=== PATIENT | female | born 1950 | race Caucasian/White ===

== ENCOUNTER → 2024-09-21 | Outpatient (CLI) | payer MEDICARE, SELFPAY ==
[2024-09-21 10:55] LABS: OBS Card Lot # 23001; OBS Performed By LAB; OBS QC OK? Yes
[2024-09-21 18:08] LABS: Occult Blood, Stool Negative (Negative); Occult Blood, Stool #2 Negative (Negative); Occult Blood, Stool #3 Negative (Negative)
[2024-09-21 18:09] LABS: OBS Developer Lot # 23003
== END | disposition home or self-care (01) ==
PROVIDERS: Referring Provider Internal Medicine; Visit Provider Internal Medicine
DX: Z12.11 Encounter for screening for malignant neoplasm of colon (principal)
CPT/HCPCS: 82270

== ENCOUNTER 2024-10-11 14:31 | Outpatient (RCR) | payer MEDICARE, SELFPAY ==
--- NOTE | 2024-10-29 22:58 | CTCFLWUP_ITS ---
Patient: MICHELLE YODER : 1950 Page 4 of 5 FOLLOW UP NOTE DATE OF SERVICE: 10/11/2024 NAME: MICHELLE YODER ACCOUNT: [id number] : 1950 AGE: 74 INTERVAL HISTORY: history of unprovoked pulmonary embolism, 04/28/2023. Patient currently taking Eliquis 5 mg twice a day, patient tolerating well. CT of chest without contrast done due to smoking history, showed new bilateral pulmonary nodules, sug gest 6-month follow-up CT chest without contrast, as detailed below, 03/29/2024. Patient is a former smoker quit about 12 years ago. Patient denies any bruising, denies any bleeding issues, denies nosebleeds, denies nausea vomit abdom inal pain bloody or black stools. Patient denies chest pain shortness of breath or palpitations, weig ht loss. 09/08/2024 CT scan showed no current calcified pulmonary nodules ONCOLOGY HISTORY: DIAGNOSIS: Other pulmonary embolism without acute cor pulmonale [ICD10] I26.99 DATE OF DIAGNOSIS: 04/28/2023 HISTORY OF PRESENT ILLNESS: 74-year-old retired female with past medical history of hypertension, hyperlipidemia, anxiety, depres dorina, memory issues presents to clinic referred by primary care provider Dr. Rider for further work- up and evaluation of unprovoked pulmonary embolism. Patient was admitted to the hospital after experiencing worsening dyspnea on exertion with dry coug h over the course of several weeks with subsequent development of right-sided chest pain which prompt ed her admission to the ER. While there, patient was further evaluated with CTA which showed multipl e small bilateral pulmonary embolisms. Patient denies any recent extended travel, surgical intervent ions, history of malignancy, use of hormone replacement therapy, other medications which have prothro mbotic activity. 04/28/2023: CTA chest with contrast 08/31/2023: Hemoglobin 12.1, hematocrit 38.6, MCV 89, ANC 4.5, platelet count 277,000, WBC 7.0, 11/30/2023: Hemoglobin 13.1, hematocrit 39.8, MCV 89, ANC 5.5, platelet count 256,000, WBC 8.0 02/29/2024: Hemoglobin 13.1, hematocrit 39.5, MCV 91, ANC 6.9, platelet count 281,000, WBC 9.4 03/29/2024: CT chest without contrast OTHER MEDICAL HISTORY/CONDITIONS: HTN,?CHOLESTEROL CSECTION?1985,?URETHROTOMY?1972 FAMILY HISTORY: Mother:?BREAST?CA?40YRS SOCIAL HISTORY: Occupational?History:?retired [employer] employee Education?Level:?Vocational School Graduate Marital?Status:? Tobacco?Pack?per?Day:?0 Tobacco?Use?Years:?20 ETOH?Use:?denies Drug?Note:?denies Social?History?Note:?lives?alone [employer] HISTORY: Menarche?-?Age:?14 Menopause:?age?55 Date?of?last?pap?smear:?unknown Hormone?Use:?denies :?3 Live?Births:?3 Age?1st?:?33 MEDICATIONS: 1. Crestor - 10 mg Daily 2. Cymbalta - 60 mg Daily 3. Eliquis - 5 mg 1 tab Twice a Day 4. MEMANTINE HCL - 10 mg Twice a Day 5. Robaxin - 500 mg As needed 6. trazodone - 100 mg In the evening 7. Xanax - 0.5 mg As needed Medications Last Reconciled by Marylou Romero MA on 10/11/2024 ALLERGIES: IODINE REVIEW OF SYSTEMS: A complete 14-point review of systems was performed and is negative except as noted in interval histo ry. PHYSICAL EXAMINATION: VITAL SIGNS: Temperature?99.6, B/P?146/81, Oxygen?Saturation?96% Weight?104?lbs PAIN: 0 - No pain ECOG Performance Status: 0 - Asymptomatic and fully active GENERAL APPEARANCE: Appears well, in no apparent distress, appropriately interactive. HEENT: Normocephalic, no temporal wasting, normal conjunctiva, no scleral icterus, normal hearing, li ps without lesions, neck normal range of motion. CARDIOVASCULAR: Not assessed. PULMONARY: Normal respiratory effort, no respiratory distress or use of accessory muscles, speaking i n full sentences, no tachypnea. EXTREMITIES: No pedal edema or cyanosis. SKIN: Normal skin appearance. NEUROLOGIC: Alert and oriented x4. PSHYCHIATRIC: Appropriate affect, mood normal, behavior normal, intact thought and speech. LABORATORY DATA: I have personally reviewed and interpreted each of the patient?s relevant lab tests, abnormal finding s are below: Date 08/03/24 ??WHITE?BLOOD?COUNT?(Thou/mm3) 8.3 ??RED?BLOOD?COUNT?(Miln/mm3) 3.95?L ??HEMOGLOBIN?(gm/dl) 12.1 ??HEMATOCRIT?(%) 36.5 ??PLATELET?COUNT?(Thou/mm3) 286 ??NEUTROPHILS?%,?AUTO?(%) 67 ??LYMPH?%,?AUTO?(%) 25 ??NEUTROPHILS,?AUTO?(Thou/mm3) 5.6 ASSESSMENT/PLAN: 1) Unprovoked pulmonary embolism: First episode 04/28/2023. Intermittent palpitations, following up with Dr. Roach, reports cardiac workup has been unremarka ble. No further hypercoagulable workup at this time 2) Former smoker, intermittent dry cough, none recently. Chest CT without contrast showed new bilateral pulmonary nodules in 03/2024 and progressed to 22 mm in 04/2024 3) History of coccidiomycosis - Continue Eliquis 5mg PO BID for now as we don?t know the reason for PE. -CT scan with IV contrast is now negative on 09/08/2024. ORDERS: Get records for Holter monitor and cardiac workup including echo Will get protein C S and factor V Leyden results or order new lab slip Get records for cocci titers which were ordered RETURN TO CLINIC: CBC CMP in 6 months BILLING AND COMPLIANCE: I reviewed external records from providers outside my specialty as summarized above. I spent a total of 50 minutes on this patient?s care on the day of their visit excluding time spent related to any bi lled procedures. This time includes time spent with the patient as well as time spent documenting in the medical record, reviewing patients records and tests, obtaining history, placing orders, communi cating with other healthcare professionals, counseling the patient, family or caregiver, and/or care coordination for the diagnoses above. Electronically Signed by: {Object.Sanct_ID*[email or web address]@M}, {Object.Sanct_ID*[email or web address]@U} D: {Object.Sanct_Date} T: {Object.Sanct_Time} CC: PCP: Hesham Rider Referring: Hesham Rider This document was completed utilizing speech recognition software. Grammatical errors, random word in sertions, pronoun errors, and incomplete sentences are an occasional consequence of this system due t o software limitations, ambient noise, and hardware issues. Any formal questions or concerns about th e content, text or information contained within the body of this dictation should be directly address ed to the provider for clarification.
== END 2024-11-01 23:59 | disposition home or self-care (01) ==
LOC: SCTC 14:31
PROVIDERS: PCP Internal Medicine; Referring Provider Internal Medicine; Visit Provider Internal Medicine Hematology & Oncology
DX: Z09 Encounter for follow-up examination after completed treatment for conditions other than malignant neoplasm (principal); Z86.711 Personal history of pulmonary embolism; Z79.01 Long term (current) use of anticoagulants; Z87.891 Personal history of nicotine dependence; R91.8 Other nonspecific abnormal finding of lung field; Z86.19 Personal history of other infectious and parasitic diseases
CPT/HCPCS: 99212; G0463

== ENCOUNTER → 2024-12-26 | Outpatient (CLI) | payer MEDICARE, SELFPAY ==
[2024-12-26 12:22] LABS: Basophils % (Auto) 0 % (0-2.5); Eosinophils # (Auto) 0.1 Thou/mm3 (0.0-0.5); Eosinophils % (Auto) 1 % (0-10); Hematocrit 37.6 % (36.0-46.0); Hemoglobin 12.2 g/dL (12.0-16.0); Immature Granulocytes % (Auto) 0 % (0-0); Immature Granulocytes Auto 0.02 Thou/mm3 (0.00-0.00); Lymphocytes # (Auto) 1.9 Thou/mm3 (1.0-4.8); Lymphocytes % (Auto) 35 % (10-50); Mean Corpuscular HGB Conc 32.4 g/dl (31.0-37.0); Mean Corpuscular Hemoglobin 30.8 pg (25.0-35.0); Mean Corpuscular Volume 95 fL (80-100); Monocytes # (Auto) 0.4 Thou/mm3 (0.0-0.8); Monocytes % (Auto) 7 % (0-12); Neutrophils % (Auto) 56 % (37-80); Nucleated Red Blood Cell % 0 /100 WBC (0); Platelet Count 220 Thou/mm3 (140-440); RDW Standard Deviation 44.2 fL (36.4-46.3); Red Blood Count 3.96 Miln/mm3 (4.00-5.20); White Blood Count 5.3 Thou/mm3 (3.6-11.0)
[2024-12-26 12:57] LABS: Alanine Aminotransferase 20 U/L (10-49); Albumin, Serum 4.3 gm/dL (3.4-4.8); Alkaline Phosphatase 47 U/L (46-116); Anion Gap 8 (7-16); Aspartate Amino Transferase 23 U/L (0-34); BUN/Creatinine Ratio 15 Ratio (12-20); Bilirubin,Total 0.4 mg/dL (0.3-1.2); Blood Urea Nitrogen 12 mg/dL (9-23); Calcium 9.2 mg/dL (8.3-10.6); Calcium (Corrected) 9.2 mg/dL (8.5-10.1); Carbon Dioxide 29.6 mMol/L (20.0-31.0); Chloride 104 mMol/L (98-107); Cholesterol 167 mg/dL (132-200); Creatinine (Component) 0.8 mg/dL (0.6-1.3); Globulin 2.2 gm/dL (2.3-3.5); Glucose 75 mg/dL (74-106); HDL Cholesterol 82 mg/dL (40-60); LDL Cholesterol,Calculated 58 mg/dL (0-130); Osmolality,Calculated 281 (275-295); Potassium 4.4 mMol/L (3.4-5.1); Sodium 142 mMol/L (136-145); Thyroid Stimulating Hormone 1.41 uIU/mL (0.55-4.78); Total Protein 6.5 gm/dL (5.7-8.2); Triglycerides 133 mg/dL (30-150); eGFR > 60 See Note
[2024-12-26 13:50] LABS: Vitamin B12 505 pg/mL (211-911); Vitamin D 25 Hydroxy Total 59.3 ng/mL (7.3-40.2)
[2024-12-26 13:51] LABS: Collection Type, Urine Clean Catch; Squamous Epithelial Cell,Urine 0 /hpf (0-5)
[2024-12-26 14:34] LABS: Bilirubin,Urine Negative (Negative); Blood,Urine Trace (Negative); Clarity,Urine Clear (Clear/Hazy); Color,Urine Lt-Yellow (Lt Yel-Yel); Glucose, Urine Negative (Negative); Ketones,Urine Negative (Negative); Leukocyte Esterase,Urine Negative (Negative); Nitrite,Urine Negative (Negative); PH,Urine 5.5 (5.0-7.0); Protein,Urine Negative (Neg - Trace); RBC,Urine 3 /hpf (0-3); Specific Gravity,Urine 1.022 (1.001-1.035); Urobilinogen,Urine Negative mg/dL (0.0-1.0); WBC,Urine < 1 /hpf (0-5)
== END | disposition home or self-care (01) ==
LOC: COPL 11:42
PROVIDERS: PCP Internal Medicine; Referring Provider Internal Medicine; Visit Provider Internal Medicine
DX: Z00.00 Encounter for general adult medical examination without abnormal findings (principal); I10 Essential (primary) hypertension; E78.5 Hyperlipidemia, unspecified; D51.9 Vitamin B12 deficiency anemia, unspecified; E55.9 Vitamin D deficiency, unspecified
CPT/HCPCS: 36415; 80053; 80061; 81001; 82306; 82607; 84443; 85025

== ENCOUNTER → 2025-04-10 | Outpatient (CLI) | payer MEDICARE, SELFPAY ==
[2025-04-10 16:27] LABS: Basophils # (Auto) 0.1 Thou/mm3 (0.0-0.2); Basophils % (Auto) 1 % (0-2.5); Eosinophils # (Auto) 0.1 Thou/mm3 (0.0-0.5); Eosinophils % (Auto) 1 % (0-10); Hematocrit 37.6 % (36.0-46.0); Hemoglobin 12.2 g/dL (12.0-16.0); Immature Granulocytes % (Auto) 0 % (0-0); Immature Granulocytes Auto 0.03 Thou/mm3 (0.00-0.00); Lymphocytes # (Auto) 1.8 Thou/mm3 (1.0-4.8); Lymphocytes % (Auto) 22 % (10-50); Mean Corpuscular HGB Conc 32.4 g/dl (31.0-37.0); Mean Corpuscular Hemoglobin 30.3 pg (25.0-35.0); Mean Corpuscular Volume 94 fL (80-100); Monocytes # (Auto) 0.5 Thou/mm3 (0.0-0.8); Monocytes % (Auto) 6 % (0-12); Neutrophils # (Auto) 5.6 Thou/mm3 (1.8-7.7); Neutrophils % (Auto) 70 % (37-80); Nucleated Red Blood Cell % 0 /100 WBC (0); Platelet Count 259 Thou/mm3 (140-440); RDW Standard Deviation 43.6 fL (36.4-46.3); Red Blood Count 4.02 Miln/mm3 (4.00-5.20)
[2025-04-10 16:40] LABS: Alanine Aminotransferase 18 U/L (10-49); Albumin, Serum 4.5 gm/dL (3.4-4.8); Albumin/Globulin Ratio 1.9 (1.2-2.2); Alkaline Phosphatase 66 U/L (46-116); Anion Gap 11 (7-16); BUN/Creatinine Ratio 16 Ratio (12-20); Bilirubin,Total 0.4 mg/dL (0.3-1.2); Blood Urea Nitrogen 16 mg/dL (9-23); Calcium 9.1 mg/dL (8.3-10.6); Calcium (Corrected) 9.1 mg/dL (8.5-10.1); Carbon Dioxide 26.6 mMol/L (20.0-31.0); Chloride 105 mMol/L (98-107); Globulin 2.4 gm/dL (2.3-3.5); Glucose 118 mg/dL (74-106); Osmolality,Calculated 287 (275-295); Sodium 143 mMol/L (136-145); Total Protein 6.9 gm/dL (5.7-8.2); eGFR 59 See Note
== END | disposition home or self-care (01) ==
LOC: SCTO 15:39
PROVIDERS: PCP Internal Medicine; Referring Provider Internal Medicine Hematology & Oncology; Visit Provider Internal Medicine Hematology & Oncology
DX: I26.99 Other pulmonary embolism without acute cor pulmonale (principal)
CPT/HCPCS: 36415; 80053; 85025

== ENCOUNTER 2025-04-11 14:29 | Outpatient (RCR) | payer MEDICARE, SELFPAY ==
--- NOTE | 2025-04-17 00:33 | CTCFLWUP_ITS ---
Patient: MICHELLE YODER : 1950 Page 4 of 6 FOLLOW UP NOTE DATE OF SERVICE: 04/11/2025 NAME: MICHELLE YODER ACCOUNT: [id number] : 1950 AGE: 74 INTERVAL HISTORY: Subjective: Chief Complaint Follow-up for pulmonary embolism, chest pain one month ago History of Present Illness Rohini is a patient with a history of unprovoked pulmonary embolism (PE) on April 24, currently on anticoagulation therapy. She presents for follow-up and reports resolution of recent chest pains. The patient experienced chest pains about a month ago, which have since resolved. She plans to visit her quality assurance qa lab analyst for further evaluation. Rohini reports feeling safe on her current anticoagulation medication, Eliquis. She mentions having completed blood work yesterday. Regarding her medical history, Rohini notes that she quit smoking and drinking 13 years ago. She also reports that her CT scan in September was clear, with no nodules present. Medications and Supplements - Eliquis 5 mg twice daily - Prevents stroke and other issues - Patient feels safe on this medication Review of Systems Cardiovascular: Positive for chest pains one month ago, now resolved. Objective: Laboratory, Imaging, and Diagnostic Test Results - CT scan (September 2024): Clear, no nodules - Coxie titers: Negative - D-Dimer: Pending ONCOLOGY HISTORY:?[facility] Oncology Hx? DIAGNOSIS: Other pulmonary embolism without acute cor pulmonale [ICD10] I26.99 history of unprovoked pulmonary embolism, 04/28/2023. Patient currently taking Eliquis 5 mg twice a day, patient tolerating well. CT of chest without contrast done due to smoking history, showed new bilateral pulmonary nodules, suggest 6-month follow-up CT chest without contrast, as detailed below, 03/29/2024. Patient is a former smoker quit about 12 years ago. Patient denies any bruising, denies any bleeding issues, denies nosebleeds, denies nausea vomit abdominal pain bloody or black stools. Patient denies chest pain shortness of breath or palpitations, weight loss. 09/08/2024 CT scan showed no current calcified pulmonary nodules DATE OF DIAGNOSIS: 04/28/2023 TREATMENT HISTORY: Care?Plan Start?Date Cycle Day Intent HISTORY OF PRESENT ILLNESS: 74-year-old retired female with past medical history of hypertension, hyperlipidemia, anxiety, depression, memory issues presents to clinic referred by primary care provider Dr. Rider for further work-up and evaluation of unprovoked pulmonary embolism. Patient was admitted to the hospital after experiencing worsening dyspnea on exertion with dry cough over the course of several weeks with subsequent development of right-sided chest pain which prompted her admission to the ER. While there, patient was further evaluated with CTA which showed multiple small bilateral pulmonary embolisms. Patient denies any recent extended travel, surgical interventions, history of malignancy, use of hormone replacement therapy, other medications which have prothrombotic activity. 04/28/2023: CTA chest with contrast 08/31/2023: Hemoglobin 12.1, hematocrit 38.6, MCV 89, ANC 4.5, platelet count 277,000, WBC 7.0, 11/30/2023: Hemoglobin 13.1, hematocrit 39.8, MCV 89, ANC 5.5, platelet count 256,000, WBC 8.0 02/29/2024: Hemoglobin 13.1, hematocrit 39.5, MCV 91, ANC 6.9, platelet count 281,000, WBC 9.4 03/29/2024: CT chest without contrast OTHER MEDICAL HISTORY/CONDITIONS: HTN,?CHOLESTEROL CSECTION?1985,?URETHROTOMY?1973 FAMILY HISTORY: Mother:?BREAST?CA?40YRS SOCIAL HISTORY: Occupational?History:?retired [employer] employee Education?Level:?Vocational School Graduate Marital?Status:? 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 Crestor - 10 mg Daily 2. Cymbalta - 60 mg Daily 3. Eliquis - 5 mg 1 tab Twice a Day 4. MEMANTINE HCL - 10 mg Twice a Day 5. Robaxin - 500 mg As needed 6. trazodone - 100 mg In the evening 7. Xanax - 0.5 mg As needed?[place] Meds? Medications Last Reconciled by Marylou Romero MA on 04/11/2025 ALLERGIES: IODINE REVIEW OF SYSTEMS: A complete 14-point review of systems was performed and is negative except as noted in interval history. PHYSICAL EXAMINATION:?CloneBlock PE? VITAL SIGNS: Temperature?99.9, B/P?107/77, Oxygen?Saturation?98% PAIN: 0 - No pain ECOG Performance Status: 0 - Asymptomatic and fully active GENERAL APPEARANCE: Appears well, in no apparent distress, appropriately interactive. HEENT: Normocephalic, no temporal wasting, normal conjunctiva, no scleral icterus, normal hearing, lips without lesions, neck normal range of motion. CARDIOVASCULAR: Not assessed. PULMONARY: Normal respiratory effort, no respiratory distress or use of accessory muscles, speaking in full sentences, no tachypnea. EXTREMITIES: No pedal edema or cyanosis. SKIN: Normal skin appearance. NEUROLOGIC: Alert and oriented x4. PSHYCHIATRIC: Appropriate affect, mood normal, behavior normal, intact thought and speech. LABORATORY DATA: I have personally reviewed and interpreted each of the patient?s relevant lab tests, abnormal findings are below: Date 12/26/24 04/10/25 ??WHITE?BLOOD?COUNT?(Thou/mm3) 5.3 8.0 ??RED?BLOOD?COUNT?(Miln/mm3) 3.96?L 4.02 ??HEMOGLOBIN?(gm/dl) 12.2 12.2 ??HEMATOCRIT?(%) 37.6 37.6 ??PLATELET?COUNT?(Thou/mm3) 220 259 ??NEUTROPHILS?%,?AUTO?(%) 56 70 ??LYMPH?%,?AUTO?(%) 35 22 ??NEUTROPHILS,?AUTO?(Thou/mm3) 3.0 5.6 ??GLUCOSE,RANDOM?(mg/dL) 75 118?H ??BLOOD?UREA?NITROGEN?(mg/dL) 12 16 ??CREATININE?(mg/dL) 0.80 1.00 ??SODIUM?(mmol/L) 142 143 ??POTASSIUM?(mmol/L) 4.4 4.0 ??CHLORIDE?(mmol/L) 104 105 ??CrCl?(CandG)?(ml/min) 45.95 36.76 ??AST/SGOT?(Unit/L) 23 ? ??ALT/SGPT?(Unit/L) 20 18 ??ALKALINE?PHOSPHATASE?(Unit/L) 47 66 ??BILIRUBIN,?TOTAL?(mg/dL) 0.4 0.4 ??PROTEIN?TOTAL?(gm/dl) 6.5 6.9 ??ALBUMIN,?SERUM?(gm/dl) 4.3 4.5 ??GLOBULIN?(gm/dl) 2.2?L 2.4 ??ALBUMIN/GLOBULIN?RATIO 2.0 1.9 ??CALCIUM,?SERUM?(mg/dL) 9.2 9.1 ??CALCIUM?SERUM?(CORRECTED)?(mg/dL) 9.2 9.1 ASSESSMENT/PLAN: Assessment and Plan: Rohini, a former smoker and drinker, presents for follow-up of an unprovoked pulmonary embolism (PE) diagnosed on April 24, with recent chest pain that has resolved. Pulmonary Embolism Assessment: Patient had an unprovoked PE diagnosed on April 24. CT scan in September was clear with no nodules. Coccidioidomycosis titers were negative, ruling out Valley Fever. Patient experienced chest pain about a month ago, which has since resolved. Currently on anticoagulation therapy with Eliquis. Plan to perform D-Dimer test to guide anticoagulation management. Plan: - Continue Eliquis at current dose until further evaluation - Perform D-Dimer test - If negative, decrease Eliquis to 2.5 mg twice daily - Advise patient to avoid contact sports and exercise caution at home - Follow up in 3 months Chest Pain Assessment: Patient reports experiencing chest pain about a month ago, which has since resolved. Given the history of PE, further cardiac evaluation is warranted. Plan: - Refer to quality assurance qa lab analyst for cardiac workup - Maintain current anticoagulation therapy until cardiac evaluation is complete ?Alejandro Mora Assessment/Plan? 1) Unprovoked pulmonary embolism: First episode 04/28/2023. Intermittent palpitations, following up with Dr. Roach, reports cardiac workup has been unremarkable. No further hypercoagulable workup at this time 2) Former smoker, intermittent dry cough, none recently. Chest CT without contrast showed new bilateral pulmonary nodules in 03/2024 and progressed to 22 mm in 04/2024. CT scan in September was clear with no nodules. 3) History of coccidiomycosis - Continue Eliquis 5mg PO BID for now as we don?t know the reason for PE. -CT scan with IV contrast is now negative on 09/08/2024. RETURN TO CLINIC: BILLING AND COMPLIANCE: I reviewed external records from providers outside my specialty as summarized above. I spent a total of 50 minutes on this patient?s care on the day of their visit excluding time spent related to any billed procedures. This time includes time spent with the patient as well as time spent documenting in the medical record, reviewing patients records and tests, obtaining history, placing orders, communicating with other healthcare professionals, counseling the patient, family or caregiver, and/or care coordination for the diagnoses above. Electronically Signed by: Alexandru Mora MD T: 12:30 AM CC: PCP: Hesham Rider Referring: Hesham Rider This document was completed utilizing speech recognition software. Grammatical errors, random word insertions, pronoun errors, and incomplete sentences are an occasional consequence of this system due to software limitations, ambient noise, and hardware issues. Any formal questions or concerns about the content, text or information contained within the body of this dictation should be directly addressed to the provider for clarification.
== END 2025-05-01 23:59 | disposition home or self-care (01) ==
LOC: SCTC 14:29
PROVIDERS: PCP Internal Medicine; Referring Provider Internal Medicine; Visit Provider Internal Medicine Hematology & Oncology
DX: I26.99 Other pulmonary embolism without acute cor pulmonale (principal); Z79.01 Long term (current) use of anticoagulants; Z87.891 Personal history of nicotine dependence
CPT/HCPCS: 99212; G0463

== ENCOUNTER → 2025-08-25 | Outpatient (CLI) | payer MEDICARE, SELFPAY ==
[2025-08-25 15:33] LABS: Basophils # (Auto) 0.0 Thou/mm3 (0.0-0.2); Basophils % (Auto) 1 % (0-2.5); Eosinophils # (Auto) 0.2 Thou/mm3 (0.0-0.5); Eosinophils % (Auto) 3 % (0-10); Hematocrit 36.9 % (36.0-46.0); Hemoglobin 11.9 g/dL (12.0-16.0); Immature Granulocytes Auto 0.02 Thou/mm3 (0.00-0.00); Lymphocytes # (Auto) 1.7 Thou/mm3 (1.0-4.8); Lymphocytes % (Auto) 26 % (10-50); Mean Corpuscular HGB Conc 32.2 g/dl (31.0-37.0); Mean Corpuscular Hemoglobin 31.2 pg (25.0-35.0); Mean Corpuscular Volume 97 fL (80-100); Monocytes # (Auto) 0.4 Thou/mm3 (0.0-0.8); Monocytes % (Auto) 7 % (0-12); Neutrophils # (Auto) 4.0 Thou/mm3 (1.8-7.7); Neutrophils % (Auto) 63 % (37-80); Nucleated Red Blood Cell # 0.00 Thou/mm3 (0.00-0.00); Nucleated Red Blood Cell % 0 /100 WBC (0); Platelet Count 365 Thou/mm3 (140-440); RDW Standard Deviation 47.1 fL (36.4-46.3); Red Blood Count 3.82 Miln/mm3 (4.00-5.20); White Blood Count 6.3 Thou/mm3 (3.6-11.0)
[2025-08-25 15:48] LABS: Alanine Aminotransferase 11 U/L (10-49); Albumin, Serum 4.9 gm/dL (3.4-4.8); Albumin/Globulin Ratio 2.2 (1.2-2.2); Alkaline Phosphatase 60 U/L (46-116); Anion Gap 10 (7-16); Aspartate Amino Transferase 23 U/L (0-34); BUN/Creatinine Ratio 11 Ratio (12-20); Bilirubin,Total 0.3 mg/dL (0.3-1.2); Blood Urea Nitrogen 11 mg/dL (9-23); Calcium 9.4 mg/dL (8.3-10.6); Calcium (Corrected) 9.4 mg/dL (8.5-10.1); Carbon Dioxide 29.9 mMol/L (20.0-31.0); Chloride 102 mMol/L (98-107); Creatinine (Component) 1.0 mg/dL (0.6-1.3); D-Dimer 652 ng/mL (<600); Globulin 2.2 gm/dL (2.3-3.5); Glucose 106 mg/dL (74-106); Osmolality,Calculated 282 (275-295); Potassium 4.2 mMol/L (3.4-5.1); Sodium 142 mMol/L (136-145); Total Protein 7.1 gm/dL (5.7-8.2); eGFR 59 See Note
== END | disposition home or self-care (01) ==
LOC: SCTO 14:43
PROVIDERS: PCP Internal Medicine; Referring Provider Internal Medicine Hematology & Oncology; Visit Provider Internal Medicine Hematology & Oncology
DX: I26.99 Other pulmonary embolism without acute cor pulmonale (principal)
CPT/HCPCS: 36415; 80053; 85025; 85379

== ENCOUNTER 2025-09-14 11:31 | Outpatient (RCR) | payer MEDICARE, SELFPAY ==
--- NOTE | 2025-09-14 12:09 | CTCFLWUP_ITS ---
Patient: MICHELLE YODER : 1950 Page 2 of 2 FOLLOW UP NOTE DATE OF SERVICE: 09/14/2025 NAME: MICHELLE YODER ACCOUNT: [id number] : 1950 AGE: 75 INTERVAL HISTORY: Subjective: Patient is doing well. No bruising . taking eliquis. No blood in stools or urine. Patient is on oral iron . patient started drinking alcohol and went to detox place and no drinks for 2 months .patient have chest discomfort now and then ,, mostly with exertion. Have constipation and black stools with oral iron and retching Medications and Supplements - Eliquis 5 mg twice daily - Prevents stroke and other issues - Patient feels safe on this medication Review of Systems Cardiovascular: Positive for chest pains one month ago, now resolved. Objective: Laboratory, Imaging, and Diagnostic Test Results - CT scan (September 2024): Clear, no nodules - Coxie titers: Negative - D-Dimer: Pending ONCOLOGY HISTORY: DIAGNOSIS: Other pulmonary embolism without acute cor pulmonale [ICD10] I26.99 history of unprovoked pulmonary embolism, 04/28/2023. Patient currently taking Eliquis 5 mg twice a day, patient tolerating well. CT of chest without contrast done due to smoking history, showed new bilateral pulmonary nodules, suggest 6-month follow-up CT chest without contrast, as detailed below, 03/29/2024. Patient is a former smoker quit about 12 years ago. Patient denies any bruising, denies any bleeding issues, denies nosebleeds, denies nausea vomit abdominal pain bloody or black stools. Patient denies chest pain shortness of breath or palpitations, weight loss. 09/08/2024 CT scan showed no current calcified pulmonary nodules DATE OF DIAGNOSIS: 04/28/2023 TREATMENT HISTORY: Care?Plan Start?Date Cycle Day Intent HISTORY OF PRESENT ILLNESS: 75-year-old retired female with past medical history of hypertension, hyperlipidemia, anxiety, depression, memory issues presents to clinic referred by primary care provider Dr. Rider for further work-up and evaluation of unprovoked pulmonary embolism. Patient was admitted to the hospital after experiencing worsening dyspnea on exertion with dry cough over the course of several weeks with subsequent development of right-sided chest pain which prompted her admission to the ER. While there, patient was further evaluated with CTA which showed multiple small bilateral pulmonary embolisms. Patient denies any recent extended travel, surgical interventions, history of malignancy, use of hormone replacement therapy, other medications which have prothrombotic activity. 04/28/2023: CTA chest with contrast 08/31/2023: Hemoglobin 12.1, hematocrit 38.6, MCV 89, ANC 4.5, platelet count 277,000, WBC 7.0, 11/30/2023: Hemoglobin 13.1, hematocrit 39.8, MCV 89, ANC 5.5, platelet count 256,000, WBC 8.0 02/29/2024: Hemoglobin 13.1, hematocrit 39.5, MCV 91, ANC 6.9, platelet count 281,000, WBC 9.4 03/29/2024: CT chest without contrast OTHER MEDICAL HISTORY/CONDITIONS: HTN,?CHOLESTEROL CSECTION?1985,?URETHROTOMY?1973 FAMILY HISTORY: Mother:?BREAST?CA?40YRS SOCIAL HISTORY: Occupational?History:?retired [employer] employee Education?Level:?Vocational School Graduate Marital?Status:? 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 Crestor - 10 mg Daily 2. Cymbalta - 60 mg Daily 3. Eliquis - 5 mg 1 tab twice a day 4. MEMANTINE HCL - 10 mg Twice a Day 5. Robaxin - 500 mg As needed 6. trazodone - 100 mg In the evening 7. Xanax - 0.5 mg As needed Medications Last Reconciled by Liliana Moreno RN on 09/14/2025 ALLERGIES: IODINE REVIEW OF SYSTEMS: A complete 14-point review of systems was performed and is negative except as noted in interval history. PHYSICAL EXAMINATION: VITAL SIGNS: PAIN: 0 - No pain ECOG Performance Status: 0 - Asymptomatic and fully active GENERAL APPEARANCE: Appears well, in no apparent distress, appropriately interactive. HEENT: Normocephalic, no temporal wasting, normal conjunctiva, no scleral icterus, normal hearing, lips without lesions, neck normal range of motion. CARDIOVASCULAR: Not assessed. PULMONARY: Normal respiratory effort, no respiratory distress or use of accessory muscles, speaking in full sentences, no tachypnea. EXTREMITIES: No pedal edema or cyanosis. SKIN: Normal skin appearance. NEUROLOGIC: Alert and oriented x4. PSHYCHIATRIC: Appropriate affect, mood normal, behavior normal, intact thought and speech. LABORATORY DATA: I have personally reviewed and interpreted each of the patient?s relevant lab tests, abnormal findings are below: Date 04/10/25 08/25/25 ??WHITE?BLOOD?COUNT?(Thou/mm3) 8.0 6.3 ??RED?BLOOD?COUNT?(Miln/mm3) 4.02 3.82?L ??HEMOGLOBIN?(gm/dl) 12.2 11.9?L ??HEMATOCRIT?(%) 37.6 36.9 ??PLATELET?COUNT?(Thou/mm3) 259 365 ??NEUTROPHILS?%,?AUTO?(%) 70 63 ??LYMPH?%,?AUTO?(%) 22 26 ??NEUTROPHILS,?AUTO?(Thou/mm3) 5.6 4.0 ??GLUCOSE,RANDOM?(mg/dL) 118?H 106 ??BLOOD?UREA?NITROGEN?(mg/dL) 16 11 ??CREATININE?(mg/dL) 1.00 1.00 ??SODIUM?(mmol/L) 143 142 ??POTASSIUM?(mmol/L) 4.0 4.2 ??CHLORIDE?(mmol/L) 105 102 ??CrCl?(CandG)?(ml/min) 36.76 36.20 ??AST/SGOT?(Unit/L) ? 23 ??ALT/SGPT?(Unit/L) 18 11 ??ALKALINE?PHOSPHATASE?(Unit/L) 66 60 ??BILIRUBIN,?TOTAL?(mg/dL) 0.4 0.3 ??PROTEIN?TOTAL?(gm/dl) 6.9 7.1 ??ALBUMIN,?SERUM?(gm/dl) 4.5 4.9?H ??GLOBULIN?(gm/dl) 2.4 2.2?L ??ALBUMIN/GLOBULIN?RATIO 1.9 2.2 ??CALCIUM,?SERUM?(mg/dL) 9.1 9.4 ??CALCIUM?SERUM?(CORRECTED)?(mg/dL) 9.1 9.4 ASSESSMENT/PLAN: Assessment and Plan: Rohini, a former smoker and drinker, presents for follow-up of an unprovoked pulmonary embolism (PE) diagnosed on April 24, with recent chest pain that has resolved. Pulmonary Embolism Assessment: Patient had an unprovoked PE diagnosed on April 24. CT scan in September was clear with no nodules. Coccidioidomycosis titers were negative, ruling out Valley Fever. Patient experienced chest pain about a month ago, which has since resolved. Currently on anticoagulation therapy with Eliquis. Plan to perform D-Dimer test to guide anticoagulation management. D dimer was above 600 mildly elvated Eliquis 5 mg bid - Advise patient to avoid contact sports and exercise caution at home - Follow up in 3 months Chest Pain On and off ECHO to evaluate EF Follow with cardiology 1) Unprovoked pulmonary embolism: First episode 04/28/2023. Intermittent palpitations, following up with Dr. Roach, reports cardiac workup has been unremarkable. No further hypercoagulable workup at this time 2) Former smoker, intermittent dry cough, none recently. Chest CT without contrast showed new bilateral pulmonary nodules in 03/2024 and progressed to 22 mm in 04/2024. CT scan in September was clear with no nodules. 3) History of coccidiomycosis - Continue Eliquis 5mg PO BID for now as we don?t know the reason for PE. -CT scan with IV contrast is now negative on 09/08/2024. Anemia - Mild anemi - Had black stools - Iron studies. ORDERS: Order # Description [id number] Iron Panel + Ferritin RETURN TO CLINIC: I reviewed the diagnosis, prognosis, and recommended treatment/procedure options with the patient (and/or their legal cash applications representative), including the potential benefits, risks, side effects and alternative therapies. We also discussed the option of no treatment and the possibility of clinical trial participation, if applicable. All questions were addressed, and they demonstrated understanding. They provided informed consent to proceed with the proposed plan of care. BILLING AND COMPLIANCE: I reviewed external records from providers outside my specialty as summarized above. I spent a total of 50 minutes on this patient?s care on the day of their visit excluding time spent related to any billed procedures. This time includes time spent with the patient as well as time spent documenting in the medical record, reviewing patients records and tests, obtaining history, placing orders, communicating with other healthcare professionals, counseling the patient, family or caregiver, and/or care coordination for the diagnoses above. Electronically Signed by: Alexandru Mora MD T: 12:07 PM CC: PCP: Hesham Rider Referring: Hesham Rider This document was completed utilizing speech recognition software. Grammatical errors, random word insertions, pronoun errors, and incomplete sentences are an occasional consequence of this system due to software limitations, ambient noise, and hardware issues. Any formal questions or concerns about the content, text or information contained within the body of this dictation should be directly addressed to the provider for clarification.
== END 2025-10-01 23:59 | disposition home or self-care (01) ==
LOC: SCTC 11:31
PROVIDERS: PCP Internal Medicine; Referring Provider Internal Medicine; Visit Provider Internal Medicine Hematology & Oncology
DX: I26.99 Other pulmonary embolism without acute cor pulmonale (principal); Z87.891 Personal history of nicotine dependence; Z86.19 Personal history of other infectious and parasitic diseases; Z79.01 Long term (current) use of anticoagulants; D64.9 Anemia, unspecified
CPT/HCPCS: 99212; G0463

== ENCOUNTER 2025-09-28 11:33 | Emergency (ER) | payer MEDICARE, SELFPAY ==
[2025-09-28 11:51] VITALS: BP 128/84; PULSE 83; RESP 18; TEMP 36.8; O2SAT 97; BMI 18.3
--- NOTE | 2025-09-28 11:55 | XR_ITS ---
Examination: CT lumbar spine, without contrast. 2-D sagittal reconstructions. 2-D coronal reconstructions. 3-D reconstructions. Date and time of exam: September 28, 2025, 1252 hours INDICATIONS: Patient fell yesterday with injury to the lower back, lower back pain CTDI: vol (mGy): 12.4 DLP: (mGycm): 339 Technique: Multiple 1.25 mm axial sections of the lumbar spine without intravenous contrast have been obtained. 2-D sagittal and coronal reconstructions have been obtained. 3-D reconstructions have been obtained. Low dose protocols were performed. One or more of the following dose reduction techniques were used; automated exposure control, adjustment of the mA and/or KV according to patient size, use of iterative reconstruction technique. Findings: Severe osteopenia No acute thoracic vertebral body compression fracture Thoracic pedicles, laminae, transverse and posterior spinous processes are intact Nondisplaced fractures anterior right first sacral wing image 146 L4-L5 3 mm central lumbar disc bulge IMPRESSION: No lumbar fracture. Comminuted fractures anterior right first sacral wing,
--- NOTE | 2025-09-28 11:55 | XR_ITS ---
Examination: CT pelvis without intravenous contrast. 2-D sagittal and coronal reconstructions. Date and time of exam: September 28, 2025, 12:52 p.m. INDICATIONS: Patient fell today with injury to the pelvis, pelvic pain CTDI: vol (mGy) : 4.51 DLP: (mGycm) : 148 Technique: Multiple 3 mm axial sections of the pelvis have been obtained with the 64 slice high resolution scanner. 2-D sagittal and coronal reconstructions. Low dose protocols were performed. One or more of the following dose reduction techniques were used; automated exposure control, adjustment of the mA and/or KV according to patient size, use of iterative reconstruction technique. Findings: Acute comminuted nondisplaced fractures right first second anterior sacral wings, axial image 51 Iliac bones intact Total right hip arthroplasty with satisfactory alignment Left hip intact Anterior pelvic rami intact No diastases SI joints No pelvic hematoma Urinary bladder intact IMPRESSION: Acute comminuted nondisplaced fractures anterior right first and second sacral wings Iliac bones intact Total right hip arthroplasty with satisfactory alignment Left hip intact No pelvic hematoma
--- NOTE | 2025-09-28 11:55 | XR_ITS ---
Examination: Left hip AP, lateral, AP pelvis 3 views Technique: Hip AP lateral, AP pelvis, 3 views Exam date and time: September 28, 2025, 1251 hours INDICATIONS: Patient fell today with injury to the right hip, right hip pain FINDINGS: Total right hip arthroplasty. Satisfactory alignment No loosening of the prosthetic components Left hip intact IMPRESSION: No hip fracture noted Please see the CT pelvis report today for description of right sacral fractures.
--- NOTE | 2025-09-28 11:59 | XR_ITS ---
EXAMINATION: Right femur 2 views TECHNIQUE: AP lateral right femur 2 views Date and time: 2024, 1305 hours INDICATIONS: Patient fell today with injury of the femur, femur pain. FINDINGS: Total right hip arthroplasty. Satisfactory alignment Shaft of the femur intact IMPRESSION: Total right hip arthroplasty with satisfactory alignment Femur intact
--- NOTE | 2025-09-28 16:00 | PD.EDFALL ---
ED Fall Injury RME/HPI General Chief Complaint: Hip Injury/Pain Stated Complaint: R) HIP PAIN, FELL YESTERDAY Time Seen by Provider: 09/28/25 11:50 Arrival date/time: 09/28/25 11:33 75-year-old female patient came in for evaluation regarding ground-level fall. Incident happened yesterday. Patient is complaining of pain to the right sacral area. Described as dull ache, worse with ambulation and mobility. Patient denies any weakness to the lower extremity. Denies any incontinence. Denies any paresthesias to the legs. No LOC no head injury no neck pain no other complaints noted. Patient is taking Eliquis. Related Data Home Medications ?Medication ?Instructions ?Recorded ?Confirmed benazepril 10 mg tablet 10 mg PO QDAY ##90 05/31/17 04/29/23 ezetimibe 10 mg tablet (Zetia) 10 mg PO QDAY #0 tabs 05/31/17 04/29/23 memantine 10 mg tablet 10 mg PO BID 05/31/21 04/29/23 rosuvastatin 10 mg tablet 10 mg PO HS 05/31/21 04/29/23 trazodone 100 mg tablet 100 mg PO HS PRN Anxiety 05/31/21 04/29/23 alprazolam 0.5 mg tablet 0.5 mg PO Q6HR PRN Agitation 04/28/23 04/29/23 duloxetine 60 mg capsule,delayed 60 mg PO QDAY 04/28/23 04/29/23 release methocarbamol 500 mg tablet 500 mg PO QDAY PRN Back Pain 04/28/23 04/29/23 Previous Rx's ?Medication ?Instructions ?Recorded amoxicillin 500 mg-potassium 1 tab PO BID #14 tabs 04/29/23 clavulanate 125 mg tablet (Augmentin) apixaban 5 mg (74 tabs) tablets in 5 mg PO BID #74 tabs 04/29/23 a dose pack (Eliquis DVT-PE Treat 30D Start) acetaminophen 300 mg-codeine 30 mg 1 tab PO TID PRN pain #20 tabs 09/28/25 tablet Allergies Allergy/AdvReac Type Severity Reaction Status Date / Time Iodinated Contrast Media Allergy Severe Hives Verified 09/28/25 11:37 (Iodinated Contrast- Oral and IV Dye) Review of Systems Review of Systems Narrative Review of Systems: Review of system reviewed and within normal limits except mentioned in HPI ED Exam Narrative Physical exam: VITAL SIGNS: Reviewed. GENERAL APPEARANCE: Alert and interactive, follows commands, no acute distress, HEAD AND FACE: Non-traumatic. ENT: PERRL, pink conjunctivitis, eyelid no trauma, Mucous membrane moist. NECK: Supple, nontender, no nuchal rigidity. CHEST: No tenderness, no crepitus, no paradoxical movement, no retractions. LUNGS: Clear, well ventilated, symmetric, no rales, no wheezing, no ronchi, no stridor, good breath sounds bilaterally. HEART: Regular rate, regular rhythm, no murmur, no gallops. ABDOMEN: Soft, positive bowel sounds, nondistended, no guarding, nontender, no rebound, no masses, RECTAL: Tenderness to the right sacral area no bruising noted, no crepitus noted GENITAL: Deferred. NEUROLOGICAL: Gross motor function intact sensory function intact, Appropriate for age. MUSCULOSKELETAL: low back nontender, full range of motion. EXTREMITIES: Nontender, full range of motion. SKIN: Color pink, dry, no rash, no lacerations, no abrasions, no contusions. LYMPHATICS: Deferred. Course Quality Measures none Orders Category Date Time Status Miscellaneous Nursing Order NOW Care 09/28/25 15:[address] lumbar spine wo con Stat Exams 09/28/25 11:[address] pelvis wo con Stat Exams 09/28/25 11:55 Completed XR femur RT 2V Stat Exams 09/28/25 11:59 Completed XR hip RT w pelvis 2-3V Stat Exams 09/28/25 11:55 Completed ACETAMINOPHEN w/COD 300-30 [Tylenol w/Cod #3] Med 09/28/25 16:02 Discontinued 1 tab PO X1 ONE Vital Signs Vital signs: Vital Signs Temperature 98.3 F 09/28/25 11:51 Pulse Rate 83 09/28/25 11:51 Respiratory Rate 18 09/28/25 11:51 Blood Pressure 128/84 09/28/25 11:51 Pulse Oximetry (%) 97 09/28/25 11:51 Oxygen Delivery Method Room Air 09/28/25 11:51 Fall MDM Narrative MDM Narrative:: 75-year-old female patient came in for evaluation regarding ground-level fall. Incident happened yesterday. Patient is complaining of pain to the right sacral area. Described as dull ache, worse with ambulation and mobility. Patient denies any weakness to the lower extremity. Denies any incontinence. Denies any paresthesias to the legs. No LOC no head injury no neck pain no other complaints noted. Patient is taking Eliquis. X-ray of femur came back unremarkable. CT scan of the pelvis showed nondisplaced comminuted fracture of the right first sacral wing. Patient was given a copy of her CT scan. Patient was advised to follow-up closely with PCP and for referral to orthopedic surgeon. At this time patient does not need emergency transfer or surgery. Patient is not showing any neurologic deficit. Patient is able to ambulate with a walker. Stable for charged home Patient data External records reviewed:: None Clinical information provided by:: patient Social determinants that could affect healthcare access:: none Patient has the following chronic illnesses:: Hypertension How is presenting disease/condition affected by chronic disease/condition?: uneffected by Evaluation data The following diagnostics were reviewed and interpreted by me:: radiology exam(s) Lab and/or radiology exams considered but not ordered:: None Interpretation Summary: See above Medications / Prescriptions Medications or Prescriptions considered but not ordered:: None Medication administrations:: Medication Administration History Discontinued Medications Acetaminophen/Codeine Phosphate (Acetaminophen W/Cod 300-30 Tablet) 1 tab PO X1 ONE Stop: 09/28/25 16:03 Tylenol codeine Consultations Consultation(s) initiated? (list below): No Diagnosis Fall Differential Diagnosis: other (Fall, sacral fracture, lumbar pain) Most likely diagnosis given after review of the tests above:: Fall, nondisplaced sacral wing fracture right Admission Indicated Admission indicated?: not indicated Admission Request Was there a request for admission?: No Disposition Plan Disposition Plan: Discharge Discharge Attestation Discharge Attestation: The patient was given an opportunity to ask questions and understood the discharge instructions. Discharge instructions specifically effects, indications for sooner follow up or return to the emergency department, and the expected course of current diagnosis. Patient condition: Stable Discharge Plan Plan Patient Disposition: HOME (Self Care) Discharge Disposition comment: Stable Prescriptions/Referrals Prescriptions/Med Rec: New acetaminophen-codeine 300-30 mg tablet 1 tab PO TID PRN (Reason: pain) Qty: 20 0RF No Action ezetimibe [Zetia] 10 MG tablet 10 mg PO QDAY Qty: 0 benazepril 10 mg Tablet 10 mg PO QDAY Qty: 90 trazodone 100 mg Tablet 100 mg PO HS PRN (Reason: Anxiety) rosuvastatin 10 mg Tablet 10 mg PO HS memantine 10 mg Tablet 10 mg PO BID duloxetine 60 mg capsule,delayed release(DR/EC) 60 mg PO QDAY Patient Comments: TAKE 1 CAPSULE BY MOUTH EVERY DAY alprazolam 0.5 mg tablet 0.5 mg PO Q6HR PRN (Reason: Agitation) Patient Comments: TAKE 1 TABLET BY MOUTH EVERY DAY NEEDED methocarbamol 500 mg tablet 500 mg PO QDAY PRN (Reason: Back Pain) Patient Comments: TAKE 1 TABLET BY MOUTH EVERY DAY NEEDED FOR LOWER BACK PAIN amoxicillin-pot clavulanate [Augmentin] 500-125 mg tablet 1 tab PO BID Qty: 14 0RF Eliquis DVT-PE Treat 30D Start 5 mg (74 tabs) tablets,dose pack 5 mg PO BID Qty: 74 0RF Referrals: Hesham Rider MD [Primary Care Provider, Nephrology] - In 1 week Problem List Clinical Impression: Fall, Closed sacral fracture Patient/Caregiver Discharge Instructions Discharge Activity: activity as tolerated Education Materials: How [employer] Heal Additional Instructions: Thank you for the opportunity for serving you today. You are stable for discharged . You are advised to: Follow-up with your PCP in 1 to 2 days and as per referral to orthopedic surgeon Return to ED for worsening of symptoms Increase oral fluids Take medication as prescribed Toe-touch weightbearing to the right lower extremity minimum of 4 weeks Print Language: Danish Stand Alone Forms: Tammy Award Info., Patient Portal Info Letter GEE/JUAN R Supervising Physician GEE/JUAN R Supervising Physician: MD mariana
[2025-09-28] MEDS: ACETAMINOPHEN w/COD 300-30 TABLET 1 TAB PO (16:25)
--- NOTE | 2025-09-28 16:27 | PC.NURSE ---
PER RITESH TELETYPE OPERATOR, UNABLE TO PROVIDE PT A WALKER AT THIS TIME. I ALREADY TALKED TO PT ABOUT IT.
== END 2025-09-28 16:32 | disposition home or self-care (01) ==
PROVIDERS: Emergency Provider Family Medicine; PCP Internal Medicine
DX: S32.10XA Unspecified fracture of sacrum, initial encounter for closed fracture (principal); S79.921A Unspecified injury of right thigh, initial encounter; S79.911A Unspecified injury of right hip, initial encounter; S39.93XA Unspecified injury of pelvis, initial encounter; W18.30XA Fall on same level, unspecified, initial encounter; Z96.641 Presence of right artificial hip joint
CPT/HCPCS: 72131; 72192; 73502; 73552; 99283; A9270